=== PATIENT | female | born 1995 | race Hispanic/Latino ===

== ENCOUNTER 2016-12-11 18:32 | Emergency (ER) | payer OTHER ==
[~2016-12-11] VITALS: Ht 152.4 cm; Wt 59.5 kg
[~2016-12-11 18:32] MED LIST: BENADRYL50 MG PO; BENTYL20 MG PO; CYCLOBENZAPRINE10 MG PO; DIFLUCAN150 MG PO; FIORICET,ESG1 TABLET PO; MELOXICAM7.5 MG PO; MICRONOR0.35 MG PO; Motrin PO; NAPROXEN500 MG PO; NEXIUM20 MG PO; NOHOMEMEDS; PRILOSEC40 MG PO; PROMETHAZINE HC25 M1 PO; PROTONIX40 MG PO; SPRINTEC1 EACH PO; VIBRAMYCIN100 MG PO; ZANTAC150 MG PO; ZITHROMAX Z-PA250 MG PO; ZOFRAN ODT4 MG PO
[2016-12-11 19:08] LABS: HEMATOCRIT 43.2 % (36.0-46.0); MCH 30.2 PG (29.0-34.0); MCHC 33.8 G/DL (30.0-36.0); MCV 89.3 FL (83-99); MEAN PLAT.VOLUME 10.5 uM^3 (9.5-12.4); PLATELET COUNT 229 K/uL (156-360); RBC DIS.WIDTH-SD 41.9 % (39-53); RED BLOOD COUNT 4.84 M/uL (3.80-5.20); WHITE BLOOD COUNT 6.4 K/uL (4.1-10.2)
[2016-12-11 19:16] LABS: CHLORIDE 107 mEq/L (99-109); POTASSIUM 3.5 mEq/L (3.7-5.4); SODIUM 141 mEq/L (136-147)
[2016-12-11 19:18] LABS: GLUCOSE 89 mg/dL (70-99)
[2016-12-11 19:19] LABS: ANION GAP 7 MEQ/L (2-14)
[2016-12-11 19:20] LABS: TOTAL BILIRUBIN 0.4 mg/dL (0.0-1.0)
[2016-12-11 19:21] LABS: ALKALINE PHOSPHATASE 93 IU/L (3-129)
[2016-12-11 19:22] LABS: GFR ESTIMATE (CALCULATED) > 59 mL/min/
[2016-12-11 19:23] LABS: UREA NITROGEN (BUN) 11 mg/dL (9-23)
[2016-12-11 19:30] LABS: QUANTITATIVE HCG < 4.0 MIU/ML
[2016-12-11 21:00] LABS: ADD MIUA? YES; BILIRUBIN NEGATIVE; BLOOD NEGATIVE; COLOR YELLOW ((YELLOW)); GLUCOSE (STRIP) NEGATIVE; KETONES 20; LEUKOCYTES NEGATIVE; NITRITE NEGATIVE; PROTEIN (STRIP) NEGATIVE; SPECIFIC GRAVITY 1.027 (1.000-1.030)
[2016-12-11 21:08] LABS: BACTERIA NONE SEEN /HPF; EPITHELIAL CELLS RARE /HPF; MUCUS 1+ /LPF; RED BLOOD CELLS 0-5 /HPF (0-5); UCUL ADDED? NO; WHITE BLOOD CELLS 0-5 /HPF (0-5)
[2016-12-11] MEDS ORDERED: NAPROSYN500 MG PO (22:26)
[2016-12-11] MEDS ORDERED: FLEXERIL10 MG PO (22:26)
[2016-12-11 22:32] VITALS: BP 121/80
== END 2016-12-11 22:35 | disposition home or self-care (01) ==
LOC: EME 18:32
DX: M54.5 Low back pain (principal); Z87.440 Personal history of urinary (tract) infections
CPT/HCPCS: 71020; 80053; 81003; 84702; 85027; 99281; 99284

== ENCOUNTER 2016-12-12 19:08 | Emergency (ER) | payer OTHER ==
[~2016-12-12 19:08] MED LIST changes: +FLEXERIL10 MG PO; +NAPROSYN500 MG PO
[2016-12-12 19:22] LABS: EOSINOPHIL (%) 1.4 % (0-5); EOSINOPHIL COUNT 0.1 K/uL (0-0.3); HEMATOCRIT 42.1 % (36.0-46.0); IMMATURE GRANULOCYTE (%) 0.5 % (0.0-0.7); IMMATURE GRANULOCYTE COUNT 0.4 K/uL; LYMPHOCYTE COUNT 3.4 K/uL (1.0-2.8); MCH 30.1 PG (29.0-34.0); MCV 88.6 FL (83-99); MEAN PLAT.VOLUME 10.7 uM^3 (9.5-12.4); MONOCYTE (%) 6.6 % (3-12); MONOCYTE COUNT 0.5 K/uL (0-0.8); NEUTROPHIL (%) 47.9 % (45-76); NEUTROPHIL COUNT 3.8 K/uL (1.8-6.4); PLATELET COUNT 230 K/uL (156-360); RBC DIS.WIDTH-SD 41.4 % (39-53); RED BLOOD COUNT 4.75 M/uL (3.80-5.20); WHITE BLOOD COUNT 7.9 K/uL (4.1-10.2)
[2016-12-12 19:33] LABS: AMYLASE 81 IU/L (1-118); CHLORIDE 105 mEq/L (99-109); POTASSIUM 3.8 mEq/L (3.7-5.4); SODIUM 141 mEq/L (136-147)
[2016-12-12 19:35] LABS: GLUCOSE 87 mg/dL (70-99)
[2016-12-12 19:36] LABS: ANION GAP 11 MEQ/L (2-14)
[2016-12-12 19:38] LABS: SERUM ETHYL ALCOHOL < 10 mg/dL
[2016-12-12 19:39] LABS: GFR ESTIMATE (CALCULATED) > 59 mL/min/
[2016-12-12 19:40] LABS: UREA NITROGEN (BUN) 10 mg/dL (9-23)
[2016-12-12 19:42] LABS: LIPASE 57 U/L (1.0-51.0)
[2016-12-12 19:48] LABS: QUANTITATIVE HCG < 4.0 MIU/ML
== END 2016-12-12 21:27 | disposition home or self-care (01) ==
LOC: TRA 19:08
PROVIDERS: Emergency Medicine
DX: M54.2 Cervicalgia (principal); M54.9 Dorsalgia, unspecified; V49.40XA Driver injured in collision with unspecified motor vehicles in traffic accident, initial encounter
CPT/HCPCS: 70450; 71260; 72125; 72129; 72132; 74177; 80048; 81003; 82150; 83690; 84702; 85025; 86850; 86900; 86901; 99281; 99284; G0480

== ENCOUNTER 2017-03-01 16:13 | Emergency (ER) | payer OTHER ==
[~2017-03-01] VITALS: Ht 152.4 cm; Wt 64.4 kg
[2017-03-01 16:53] LABS: MCH 30.2 PG (29.0-34.0); MCV 91.5 FL (83-99); MEAN PLAT.VOLUME 9.8 uM^3 (9.5-12.4); PLATELET COUNT 215 K/uL (156-360); RBC DIS.WIDTH-CV 13.2 % (11.8-14.6); RBC DIS.WIDTH-SD 44.7 % (39-53); WHITE BLOOD COUNT 8.2 K/uL (4.1-10.2)
[2017-03-01 17:00] LABS: ADD MIUA? YES; BILIRUBIN NEGATIVE; BLOOD NEGATIVE; COLOR YELLOW ((YELLOW)); GLUCOSE (STRIP) NEGATIVE; KETONES NEGATIVE; LEUKOCYTES NEGATIVE; NITRITE NEGATIVE; PROTEIN (STRIP) NEGATIVE; SPECIFIC GRAVITY 1.017 (1.000-1.030); UROBILINOGEN 0.2 MG/DL (0.2-1.0)
[2017-03-01 17:02] LABS: BACTERIA NONE SEEN /HPF; EPITHELIAL CELLS 1+ /HPF; MUCUS TRACE /LPF; RED BLOOD CELLS 0-5 /HPF (0-5); WHITE BLOOD CELLS 0-5 /HPF (0-5)
[2017-03-01 17:05] LABS: CHLORIDE 107 mEq/L (99-109); POTASSIUM 3.7 mEq/L (3.7-5.4); SODIUM 139 mEq/L (136-147)
[2017-03-01 17:06] LABS: GLUCOSE 97 mg/dL (70-99)
[2017-03-01 17:08] LABS: ANION GAP 10 MEQ/L (2-14)
[2017-03-01 17:10] LABS: GFR ESTIMATE (CALCULATED) > 59 mL/min/
[2017-03-01 17:11] LABS: UREA NITROGEN (BUN) 10 mg/dL (9-23)
[2017-03-01 17:18] LABS: QUANTITATIVE HCG 168.7 MIU/ML
[2017-03-01] MEDS ORDERED: AMOXICILLIN500 MG PO (17:30)
[2017-03-01 17:58] VITALS: BP 114/84
[2017-03-03 11:09] LABS: LYME DISEASE SEROLOGY SCREEN NEGATIVE (NEGATIVE)
== END 2017-03-01 17:58 | disposition home or self-care (01) ==
LOC: EME 16:13
PROVIDERS: Physician Assistant
DX: O26.899 Other specified pregnancy related conditions, unspecified trimester (principal); O9A.219 Injury, poisoning and certain other consequences of external causes complicating pregnancy, unspecified trimester; R10.30 Lower abdominal pain, unspecified; S00.96XA Insect bite (nonvenomous) of unspecified part of head, initial encounter; W57.XXXA Bitten or stung by nonvenomous insect and other nonvenomous arthropods, initial encounter; Z3A.00 Weeks of gestation of pregnancy not specified
CPT/HCPCS: 80048; 81003; 84702; 85027; 86618; 99281; 99283

== ENCOUNTER 2017-03-07 21:27 | Emergency (ER) | payer OTHER ==
[~2017-03-07] VITALS: Ht 152.4 cm; Wt 65.1 kg
[~2017-03-07 21:27] MED LIST changes: +AMOXICILLIN500 MG PO
[2017-03-07 22:00] LABS: HEMATOCRIT 40.8 % (36.0-46.0); MCH 30.6 PG (29.0-34.0); MCHC 33.6 G/DL (30.0-36.0); MCV 91.1 FL (83-99); MEAN PLAT.VOLUME 9.8 uM^3 (9.5-12.4); PLATELET COUNT 233 K/uL (156-360); RBC DIS.WIDTH-CV 12.9 % (11.8-14.6); RBC DIS.WIDTH-SD 43.3 % (39-53); RED BLOOD COUNT 4.48 M/uL (3.80-5.20); WHITE BLOOD COUNT 9.1 K/uL (4.1-10.2)
[2017-03-07 22:12] LABS: CHLORIDE 106 mEq/L (99-109); POTASSIUM 3.7 mEq/L (3.7-5.4); SODIUM 139 mEq/L (136-147)
[2017-03-07 22:14] LABS: GLUCOSE 85 mg/dL (70-99)
[2017-03-07 22:15] LABS: ANION GAP 7 MEQ/L (2-14)
[2017-03-07 22:16] LABS: TOTAL BILIRUBIN 0.3 mg/dL (0.0-1.0)
[2017-03-07 22:18] LABS: ALKALINE PHOSPHATASE 77 IU/L (3-129); GFR ESTIMATE (CALCULATED) > 59 mL/min/
[2017-03-07 22:19] LABS: UREA NITROGEN (BUN) 9 mg/dL (9-23)
[2017-03-07 22:24] LABS: ADD MIUA? YES; BILIRUBIN NEGATIVE; BLOOD NEGATIVE; COLOR YELLOW ((YELLOW)); GLUCOSE (STRIP) NEGATIVE; KETONES NEGATIVE; LEUKOCYTES TRACE; NITRITE NEGATIVE; PROTEIN (STRIP) NEGATIVE; SPECIFIC GRAVITY 1.023 (1.000-1.030); UROBILINOGEN 0.2 MG/DL (0.2-1.0)
[2017-03-07 22:28] LABS: QUANTITATIVE HCG 5911.7 MIU/ML
[2017-03-07 22:37] LABS: BACTERIA RARE /HPF; EPITHELIAL CELLS 3+ /HPF; MUCUS TRACE /LPF; RED BLOOD CELLS 0-5 /HPF (0-5); UCUL ADDED? NO; WHITE BLOOD CELLS 0-5 /HPF (0-5)
[2017-03-08] MEDS ORDERED: ZOFRAN4 MG PO (01:57)
[2017-03-08 02:08] VITALS: BP 114/64
[2017-03-10 14:40] LABS: CHLAMYDIA TRACHOMATIS NEGATIVE; NEISSERIA GONORRHOEAE NEGATIVE
== END 2017-03-08 02:13 | disposition home or self-care (01) ==
LOC: EME 21:27
PROVIDERS: Emergency Medicine
DX: O26.891 Other specified pregnancy related conditions, first trimester (principal); R10.2 Pelvic and perineal pain; R11.0 Nausea; Z3A.01 Less than 8 weeks gestation of pregnancy
CPT/HCPCS: 76801; 80053; 81003; 84702; 85027; 86900; 86901; 87210; 87491; 87591; 99281; 99285; J2405; J7030

== ENCOUNTER 2017-08-22 13:52 | Emergency (ER) | payer OTHER ==
[~2017-08-22] VITALS: Ht 152.4 cm; Wt 68.2 kg
[~2017-08-22 13:52] MED LIST changes: +FLONASE16 G1 BOTH NARES; +MOTRIN800 MG PO; +MUCINEX D ER T1 EACH PO; +ZOFRAN4 MG PO
[2017-08-22 15:27] LABS: HEMATOCRIT 41.9 % (36.0-46.0); MCH 29.4 PG (29.0-34.0); MCHC 32.7 G/DL (30.0-36.0); MCV 89.9 FL (83-99); MEAN PLAT.VOLUME 10.4 uM^3 (9.5-12.4); PLATELET COUNT 221 K/uL (156-360); RBC DIS.WIDTH-CV 13.2 % (11.8-14.6); RBC DIS.WIDTH-SD 43.6 % (39-53); RED BLOOD COUNT 4.66 M/uL (3.80-5.20); WHITE BLOOD COUNT 7.3 K/uL (4.1-10.2)
[2017-08-22 15:34] LABS: CHLORIDE 105 mEq/L (99-109); POTASSIUM 3.8 mEq/L (3.7-5.4); SODIUM 139 mEq/L (136-147)
[2017-08-22 15:37] LABS: GLUCOSE 104 mg/dL (70-99)
[2017-08-22 15:38] LABS: ANION GAP 7 MEQ/L (2-14)
[2017-08-22 15:39] LABS: TOTAL BILIRUBIN 0.4 mg/dL (0.0-1.0)
[2017-08-22 15:40] LABS: ALKALINE PHOSPHATASE 86 IU/L (3-129); GFR ESTIMATE (CALCULATED) > 59 mL/min/
[2017-08-22 15:41] LABS: UREA NITROGEN (BUN) 12 mg/dL (9-23)
[2017-08-22 15:50] LABS: QUANTITATIVE HCG < 4.0 MIU/ML
[2017-08-22 16:16] LABS: ADD MIUA? YES; BILIRUBIN NEGATIVE; BLOOD NEGATIVE; COLOR YELLOW ((YELLOW)); GLUCOSE (STRIP) NEGATIVE; KETONES NEGATIVE; LEUKOCYTES TRACE; NITRITE NEGATIVE; PROTEIN (STRIP) NEGATIVE; UROBILINOGEN 0.2 MG/DL (0.2-1.0)
[2017-08-22 16:20] LABS: BACTERIA NONE SEEN /HPF; EPITHELIAL CELLS 4+ /HPF; MUCUS TRACE /LPF; RED BLOOD CELLS 0-5 /HPF (0-5); UCUL ADDED? YES
[2017-08-22] MEDS ORDERED: DOXYCYCLINE MO100 MG PO (19:22)
[2017-08-22 19:52] VITALS: BP 111/74
[2017-08-25 13:14] LABS: CHLAMYDIA TRACHOMATIS NEGATIVE; NEISSERIA GONORRHOEAE NEGATIVE
== END 2017-08-22 19:52 | disposition home or self-care (01) ==
LOC: EME 13:52
PROVIDERS: Physician Assistant
DX: N73.9 Female pelvic inflammatory disease, unspecified (principal); E03.9 Hypothyroidism, unspecified; Z87.440 Personal history of urinary (tract) infections
CPT/HCPCS: 76856; 80053; 81003; 84702; 85027; 87077; 87086; 87210; 87491; 87591; 99281; 99284; J0696

== ENCOUNTER 2017-10-22 18:45 | Emergency (ER) | payer OTHER ==
[~2017-10-22] VITALS: Ht 152.4 cm; Wt 68.9 kg
[~2017-10-22 18:45] MED LIST changes: +DOXYCYCLINE MO100 MG PO
[2017-10-22 19:49] LABS: BASOPHIL (%) 0.2 % (0-1); EOSINOPHIL (%) 0.9 % (0-5); EOSINOPHIL COUNT 0.1 K/uL (0-0.3); HEMATOCRIT 38.1 % (36.0-46.0); HEMOGLOBIN 13.1 G/DL (11.9-15.5); IMMATURE GRANULOCYTE (%) 0.3 % (0.0-0.7); LYMPHOCYTE (%) 29.8 % (15-42); LYMPHOCYTE COUNT 2.8 K/uL (1.0-2.8); MCH 30.7 PG (29.0-34.0); MCHC 34.4 G/DL (30.0-36.0); MCV 89.2 FL (83-99); MONOCYTE (%) 5.9 % (3-12); MONOCYTE COUNT 0.5 K/uL (0-0.8); NEUTROPHIL (%) 62.9 % (45-76); NEUTROPHIL COUNT 5.8 K/uL (1.8-6.4); PLATELET COUNT 243 K/uL (156-360); RBC DIS.WIDTH-CV 12.8 % (11.8-14.6); RED BLOOD COUNT 4.27 M/uL (3.80-5.20); WHITE BLOOD COUNT 9.2 K/uL (4.1-10.2)
[2017-10-22 19:56] LABS: CHLORIDE 107 mEq/L (99-109); POTASSIUM 4.1 mEq/L (3.7-5.4); SODIUM 135 mEq/L (136-147)
[2017-10-22 19:59] LABS: GLUCOSE 99 mg/dL (70-99); TOTAL PROTEIN 7.1 g/dL (6.4-8.3)
[2017-10-22 20:00] LABS: TOTAL BILIRUBIN 0.3 mg/dL (0.0-1.0)
[2017-10-22 20:02] LABS: ALKALINE PHOSPHATASE 83 IU/L (3-129); CREATININE 0.7 mg/dL (0.6-1.3); GFR ESTIMATE (CALCULATED) > 59 mL/min/
[2017-10-22 20:03] LABS: UREA NITROGEN (BUN) 9 mg/dL (9-23)
[2017-10-22 20:04] LABS: AST (GOT) 22 IU/L (2-34)
[2017-10-22 20:05] LABS: ALT (GPT) 28 IU/L (3-49)
[2017-10-22 20:06] LABS: LIPASE 48 U/L (1.0-51.0)
[2017-10-22 20:20] LABS: APPEARANCE CLOUDY ((CLEAR)); BILIRUBIN NEGATIVE; BLOOD SMALL; COLOR YELLOW ((YELLOW)); GLUCOSE (STRIP) NEGATIVE; KETONES NEGATIVE; LEUKOCYTES SMALL; NITRITE NEGATIVE; PROTEIN (STRIP) NEGATIVE; SPECIFIC GRAVITY 1.025 (1.000-1.030); UROBILINOGEN 0.2 MG/DL (0.2-1.0)
[2017-10-22 20:29] LABS: BACTERIA RARE /HPF; EPITHELIAL CELLS 3+ /HPF; MUCUS TRACE /LPF; RED BLOOD CELLS 0-5 /HPF (0-5); WHITE BLOOD CELLS 0-5 /HPF (0-5)
[2017-10-22 20:30] LABS: QUANTITATIVE HCG 49665.8 MIU/ML
[2017-10-22] MEDS ORDERED: ZOFRAN ODT4 MG PO (22:00)
[2017-10-22 22:22] VITALS: BP 111/80
== END 2017-10-22 22:27 | disposition home or self-care (01) ==
LOC: EME 18:45
PROVIDERS: Physician Assistant
DX: O20.0 Threatened abortion (principal); Z3A.01 Less than 8 weeks gestation of pregnancy; O99.281 Endocrine, nutritional and metabolic diseases complicating pregnancy, first trimester; E03.9 Hypothyroidism, unspecified; Z87.440 Personal history of urinary (tract) infections
CPT/HCPCS: 76801; 80053; 81003; 83690; 84702; 85025; 99281; 99283

== ENCOUNTER 2017-12-18 15:46 | Emergency (ER) | payer OTHER ==
[~2017-12-18] VITALS: Ht 134.6 cm; Wt 72.0 kg
[2017-12-18 16:27] LABS: HEMATOCRIT 34.7 % (36.0-46.0); HEMOGLOBIN 11.9 G/DL (11.9-15.5); MCH 30.7 PG (29.0-34.0); MCHC 34.3 G/DL (30.0-36.0); MCV 89.4 FL (83-99); PLATELET COUNT 194 K/uL (156-360); RBC DIS.WIDTH-CV 12.6 % (11.8-14.6); RBC DIS.WIDTH-SD 41.3 % (39-53); RED BLOOD COUNT 3.88 M/uL (3.80-5.20); WHITE BLOOD COUNT 8.7 K/uL (4.1-10.2)
[2017-12-18 17:10] LABS: QUANTITATIVE HCG 30451.3 MIU/ML
[2017-12-18 19:05] LABS: CHLORIDE 106 mEq/L (99-109); POTASSIUM 3.8 mEq/L (3.7-5.4); SODIUM 137 mEq/L (136-147)
[2017-12-18 19:06] LABS: GLUCOSE 75 mg/dL (70-99)
[2017-12-18 19:10] LABS: CREATININE 0.6 mg/dL (0.6-1.3); GFR ESTIMATE (CALCULATED) > 59 mL/min/
[2017-12-18 19:11] LABS: UREA NITROGEN (BUN) 6 mg/dL (9-23)
[2017-12-18 20:17] LABS: APPEARANCE CLEAR ((CLEAR)); BILIRUBIN NEGATIVE; BLOOD NEGATIVE; COLOR YELLOW ((YELLOW)); GLUCOSE (STRIP) NEGATIVE; KETONES 5; LEUKOCYTES NEGATIVE; NITRITE NEGATIVE; PROTEIN (STRIP) NEGATIVE; SPECIFIC GRAVITY 1.017 (1.000-1.030); UCUL ADDED? NO; UROBILINOGEN 0.2 MG/DL (0.2-1.0)
[2017-12-18 21:58] VITALS: BP 115/71
== END 2017-12-18 21:59 | disposition home or self-care (01) ==
LOC: EME 15:46
DX: O9A.212 Injury, poisoning and certain other consequences of external causes complicating pregnancy, second trimester (principal); S39.012A Strain of muscle, fascia and tendon of lower back, initial encounter; S70.02XA Contusion of left hip, initial encounter; R10.9 Unspecified abdominal pain; O99.282 Endocrine, nutritional and metabolic diseases complicating pregnancy, second trimester; E86.0 Dehydration; Z3A.15 15 weeks gestation of pregnancy; Z87.440 Personal history of urinary (tract) infections; W01.0XXA Fall on same level from slipping, tripping and stumbling without subsequent striking against object, initial encounter; Y93.E5 Activity, floor mopping and cleaning; Y92.009 Unspecified place in unspecified non-institutional (private) residence as the place of occurrence of the external cause
CPT/HCPCS: 76805; 80048; 81003; 84702; 85027; 99281; 99284

== ENCOUNTER 2018-02-16 15:58 | Outpatient (CLI) | payer OTHER ==
[2018-02-16 16:10] VITALS: BP 120/59
== END 2018-02-16 18:39 | disposition home or self-care (01) ==
LOC: LDRP-OP 15:58 → 2WEST 15:59
DX: O36.8120 Decreased fetal movements, second trimester, not applicable or unspecified (principal); O99.282 Endocrine, nutritional and metabolic diseases complicating pregnancy, second trimester; E04.1 Nontoxic single thyroid nodule; Z3A.23 23 weeks gestation of pregnancy
CPT/HCPCS: 59025; G0378

== ENCOUNTER 2018-05-26 20:28 | Outpatient (CLI) | payer OTHER ==
[~2018-05-26] VITALS: Ht 152.4 cm; Wt 90.0 kg
[2018-05-26 20:45] VITALS: BP 114/68
[2018-05-26 22:06] VITALS: BP 101/61
[2018-05-27] MEDS ORDERED: PRENATAL VITAM1 EA11 PO (00:06)
[2018-05-27] MEDS ORDERED: IRON325 M1 PO (00:07)
== END 2018-05-27 00:20 | disposition home or self-care (01) ==
LOC: LDRP-OP 20:28 → 2WEST 20:29 → LDRP-OP 07-14 18:54
DX: O47.1 False labor at or after 37 completed weeks of gestation (principal); O99.013 Anemia complicating pregnancy, third trimester; O99.213 Obesity complicating pregnancy, third trimester; E66.9 Obesity, unspecified; O99.613 Diseases of the digestive system complicating pregnancy, third trimester; K21.9 Gastro-esophageal reflux disease without esophagitis; Z3A.37 37 weeks gestation of pregnancy
CPT/HCPCS: 59025; G0378

== ENCOUNTER 2018-06-09 07:38 | Inpatient (IN) | payer OTHER ==
[~2018-06-09] VITALS: Ht 152.4 cm; Wt 89.8 kg
[2018-06-09] VITALS (16 sets, daily range): BP systolic 95–123; BP diastolic 56–82
[~2018-06-09 07:38] MED LIST changes: +IRON325 M1 PO; +PRENATAL VITAM1 EA11 PO
[2018-06-09 09:21] LABS: BASOPHIL (%) 0.1 % (0-1); EOSINOPHIL (%) 0.6 % (0-5); EOSINOPHIL COUNT 0.1 K/uL (0-0.3); HEMATOCRIT 33.9 % (36.0-46.0); HEMOGLOBIN 11.1 G/DL (11.9-15.5); IMMATURE GRANULOCYTE (%) 0.9 % (0.0-0.7); LYMPHOCYTE (%) 25.7 % (15-42); MCH 27.8 PG (29.0-34.0); MCHC 32.7 G/DL (30.0-36.0); MCV 84.8 FL (83-99); MONOCYTE (%) 7.7 % (3-12); MONOCYTE COUNT 0.6 K/uL (0-0.8); NEUTROPHIL COUNT 5.2 K/uL (1.8-6.4); PLATELET COUNT 170 K/uL (156-360); RBC DIS.WIDTH-CV 17.2 % (11.8-14.6); RBC DIS.WIDTH-SD 53.3 % (39-53)
[2018-06-09 09:32] LABS: AMPHETAMINE NEGATIVE (500 ng/mL); BARBITURATES NEGATIVE (200 ng/mL); BENZODIAZEPINES NEGATIVE (150 ng/mL); BUPRENORPHINE NEGATIVE (10 ng/mL); COCAINE NEGATIVE (150 ng/mL); METHADONE NEGATIVE (200 ng/mL); METHAMPHETAMINE NEGATIVE (500 ng/mL); OPIATES (MORPHINE) NEGATIVE (100 ng/mL); OXYCODONE NEGATIVE (100 ng/mL); PHENCYCLIDINE NEGATIVE (25 ng/mL); PROPOXYPHENE NEGATIVE (300 ng/mL); THC CANNABINOIDS NEGATIVE (50 ng/mL); TRICYCLIC ANTIDEPRESSANTS NEGATIVE (300 ng/mL)
[2018-06-10 05:59] LABS: BASOPHIL (%) 0.1 % (0-1); EOSINOPHIL (%) 0.8 % (0-5); EOSINOPHIL COUNT 0.1 K/uL (0-0.3); HEMOGLOBIN 11.8 G/DL (11.9-15.5); IMMATURE GRANULOCYTE (%) 0.7 % (0.0-0.7); LYMPHOCYTE (%) 21.1 % (15-42); LYMPHOCYTE COUNT 2.7 K/uL (1.0-2.8); MCH 28.1 PG (29.0-34.0); MCHC 32.8 G/DL (30.0-36.0); MCV 85.7 FL (83-99); MONOCYTE (%) 9.5 % (3-12); MONOCYTE COUNT 1.2 K/uL (0-0.8); NEUTROPHIL (%) 67.8 % (45-76); NEUTROPHIL COUNT 8.8 K/uL (1.8-6.4); PLATELET COUNT 189 K/uL (156-360); RBC DIS.WIDTH-CV 17.3 % (11.8-14.6); RBC DIS.WIDTH-SD 53.9 % (39-53)
[2018-06-10 07:11] VITALS: BP 103/63
[2018-06-10] MEDS ORDERED: IBUPROFEN800 MG PO (11:15)
[2018-06-10] MEDS ORDERED: CAMILA0.35 MG PO (11:17)
[2018-06-10 14:25] VITALS: BP 112/65
== END 2018-06-10 20:21 | disposition home or self-care (01) | DRG 775 ==
LOC: LDRP-OP 07:38 → 2WEST 07:39 → LDRP-OP 08:11 → 2WEST 16:42 → LDRP-OP 07-14 00:33
PROVIDERS: Advanced Practice Midwife; Obstetrics & Gynecology
PROC: 10907ZC Drainage of Amniotic Fluid, Therapeutic from Products of Conception, Via Natural or Artificial Opening (ICD-10-PCS; principal; 2018-06-09)
PROC: 10E0XZZ Delivery of Products of Conception, External Approach (ICD-10-PCS; principal; 2018-06-09)
PROC: 3E0P7VZ Introduction of Hormone into Female Reproductive, Via Natural or Artificial Opening (ICD-10-PCS; principal; 2018-06-09)
PROC: 3E033VJ Introduction of Other Hormone into Peripheral Vein, Percutaneous Approach (ICD-10-PCS; principal; 2018-06-09)
DX: O36.8130 Decreased fetal movements, third trimester, not applicable or unspecified (principal); O99.214 Obesity complicating childbirth; O99.02 Anemia complicating childbirth; E66.9 Obesity, unspecified; D64.9 Anemia, unspecified; Z3A.39 39 weeks gestation of pregnancy; Z37.0 Single live birth; O99.62 Diseases of the digestive system complicating childbirth; K21.9 Gastro-esophageal reflux disease without esophagitis
CPT/HCPCS: 85025; 86850; 86900; 86901; J7120